=== PATIENT | male | born 1965 | race Caucasian/White ===

== ENCOUNTER 2018-01-09 13:49 | Emergency (ER) | payer MEDICAID ==
--- NOTE | 2018-01-09 14:34 | EDPHY ---
H & P Stated Complaint: bi-lat knee pain Time Seen by Provider: 01/09/18 14:19 HPI/ROS: CHIEF COMPLAINT: Left knee pain post falling out of wheelchair HISTORY OF PRESENT ILLNESS: 52-year-old male history of multiple sclerosis, wheelchair bound, arrives with his binder caser complaining of left knee pain which occurred 2 days ago when he was transferring on the toilet and his foot caught and he landed on his left knee. This is a mechanical episode non syncope. He notes notes an abrasion with no other wound. No head injury. No midline C-spine pain or injury. No back pain or injury. No chest pain or injury. No straddle injury. No fever or chills. No flu-like symptoms. No malaise. No prolonged periods of mobility on the floor. Patient also states that he has bed bugs. These are not causing him discomfort. PRIMARY CARE PROVIDER: [facility] REVIEW OF SYSTEMS: A ten point review of systems was performed and is negative with the exception of the items mentioned in the HPI PAST MEDICAL & SURGICAL HISTORY: multiple sclerosis SOCIAL HISTORY: Lives by himself. PHYSICAL EXAM (Prior to examination, patient consented to physical exam, hands were washed and my usual and customary physical exam procedures followed) 1) GENERAL: thin, alert and oriented. Appears to be in no acute distress. Wheelchair 2) HEAD: Normocephalic, atraumatic 3) HEENT: Pupils equal, round, reactive to light bilaterally. Sclera anicteric. 4) NECK: Full range of motion, no meningeal signs. 5) LUNGS: Clear auscultation bilaterally, no wheezes, no rhonchi, no retractions. 6) HEART: Regular rate and rhythm, no murmur, no heave, no gallop. 7) ABDOMEN: No guarding, no rebound, no focal tenderness, negative McBurney's, negative Olson's, negative Rovsing's, negative peritoneal sign, 8) MUSCULOSKELETAL: Left lower extremity: Abrasion and tenderness to the left lateral knee. Normal color and temperature. No evidence of septic arthritis. Moving all extremities, no focal areas of tenderness, no obvious trauma. No peripheral edema or discoloration. 9) BACK: No CVA tenderness, no midline vertebral tenderness, no fluctuance, no step-off, no obvious trauma, no visual or palpable abnormality. 10) SKIN: multiple flat erythematous skin lesions which are non excoriated. No signs of super infection or cellulitis.. 11) Psychiatric: Patient is oriented X 3, there is no agitation. DIFFERENTIAL DIAGNOSIS: In no particular order including but not limited to fracture, sprain, strain, dislocation, bedbugs, scabies - Personal History Current Tetanus/Diphtheria Vaccine: Unsure Current Tetanus Diphtheria and Acellular Pertussis (TDAP): Unsure Tetanus Vaccine Date: within the last 10 yrs - Medical/Surgical History Hx Asthma: No Hx Chronic Respiratory Disease: No Hx Diabetes: No Hx Cardiac Disease: No Hx Renal Disease: No Hx Cirrhosis: No Hx Alcoholism: No Hx HIV/AIDS: No Hx Splenectomy or Spleen Trauma: No Other PMH: hip issues ms blind self caths - Social History Smoking Status: Current every day smoker Constitutional: Initial Vital Signs Temperature (C) 36.8 C 01/09/18 13:51 Heart Rate 130 H 01/09/18 13:51 Respiratory Rate 16 01/09/18 13:51 Blood Pressure 118/67 01/09/18 13:51 O2 Sat (%) 93 01/09/18 13:51 O2 Delivery Mode Room Air Allergies/Adverse Reactions: penicillin V potassium [From Pen-Vee K] Allergy (Verified 05/21/14 13:15) opiates Allergy (Uncoded 05/21/14 13:15) pen Allergy (Uncoded 05/21/14 13:15) Home Medications: Medication Instructions Recorded Herbals/Supplements -Info Only 1 ea PO DAILY 05/21/14 Acetaminophen [Tylenol 325mg (*)] 650 mg PO Q4 PRN #0 tab 05/24/14 Cyclobenzaprine [Flexeril 10 MG 10 mg PO TID #20 tab 05/24/14 (*)] Ibuprofen [Motrin (*)] 800 mg PO Q8 PRN #30 tab 05/24/14 Oxybutynin Chloride [Ditropan] 5 mg PO DAILY #30 tab 05/24/14 Medical Decision Making - Diagnostics Imaging Results: Imaging Impressions Knee X-Ray 01/09/18 14:30 Impression: Negative. No acute fracture or effusion. Images review myself ED Course/Re-evaluation: 2:30 p.m.: Patient is in the ER with this binder caser. He would only like an x-ray of his left knee. He does not want further intervention. He is noted to be thin. S He is noted to be tachycardic and afebrile. The specific etiology of his tachycardia is incompletely clear. I recommended further evaluation from the ER. tates that he feels comfortable living by himself and he would like to be discharged home. He is answering questions appropriately. I believe him to have decision-making capacity. 3:16 p.m.: Emergency department staff has obtained a bug the patient which may be consistent with bed bug. The patient I discussed retic a tejada bedbugs recommend he contact an meeting manager. Regarding his left knee pain there is no evidence of fracture. We discussed limitations of x-ray informed that non osseous injury not ruled out. Doubt septic arthritis. There are no prolonged periods of mobility on the floor. Doubt rhabdomyolysis. Plan will be discharge home, follow up with Orthopedics. Usual and customary orthopedic precautions and instructions provided. Departure - Departure Disposition: Home, Routine, Self-Care Clinical Impression: Infestation by bed bug Left knee pain Qualifiers: Chronicity: acute Qualified Code(s): M25.562 - Pain in left knee Condition: Good Instructions: Knee Pain (ED), Insect Bite or Sting (ED), Bed Bugs (ED) Additional Instructions: Return to the ER immediately if you experience discoloration, have worsening pain, numbness, tingling, or any other symptoms that concern you. If you received x-rays in the emergency department today, be advised, that ligamentous , tendon, muscular, and other non-bony injury cannot be fully ruled out. Try to keep your affected extremity elevated above the level of your chest, and keep cold packs on the affected area, for the next 48 hours. Please do not itch or scratch your skin you can cause a skin infection. Referrals: Chris Livingston MD [Medical Doctor] - 2-3 days, call for appt.
[2018-01-09 15:25] VITALS: BP 102/57
== END 2018-01-09 15:45 | disposition home or self-care (01) ==
DX: S89.92XA Unspecified injury of left lower leg, initial encounter (principal); B88.9 Infestation, unspecified; F17.200 Nicotine dependence, unspecified, uncomplicated; W05.0XXA Fall from non-moving wheelchair, initial encounter; Y92.002 Bathroom of unspecified non-institutional (private) residence as the place of occurrence of the external cause; Y99.8 Other external cause status; Y93.89 Activity, other specified